=== PATIENT | male | born 1975 | race Caucasian/White ===

== ENCOUNTER 2016-11-14 06:56 | Day surgery (SDC) | payer BC ==
[~2016-11-14 06:56] MED LIST: Lactated Ringers 1,000 ML IV SCH
[2016-11-14] MEDS ORDERED: Propofol 200 MG/20 ML SDV ONE (08:04)
[2016-11-14] MEDS ORDERED: fentaNYL 100 MCG/2 ML SDV ONE (08:04)
[2016-11-14] MEDS ORDERED: Midazolam 1 MG/ML 2 ML SDV ONE (08:04)
[2016-11-14 09:21] VITALS: BP 149/98
--- NOTE | 2016-11-14 15:29 | OR ---
PREOPERATIVE DIAGNOSIS: Family history of colon cancer-mother. POSTOPERATIVE DIAGNOSIS: Polyp at 90 cm, removed. PROCEDURE PROPOSED: Total flexible colonoscopy. PROCEDURE DONE: Total flexible colonoscopy with cold snare polypectomy. INDICATION: This is a 41-year-old gentleman who has a family history of mother having had colon cancer at a young age, and he comes in for his first colonoscopic exam. He denies any symptomatology. TECHNIQUE: The patient was brought to the endoscopy suite, placed in left lateral decubitus position. He was sedated per [employer] with propofol. The flexible video colonoscope was then passed transanally and under visualization advanced to the cecum. Examination revealed a normal cecal and ascending colon, but right in the hepatic flexure, there was a polyp in 1 of the folds and I was able to get a cold snare on that and remove it and suctioned it out for examination. The remainder of the transverse, descending, sigmoid, and rectal colon was otherwise unremarkable. The endoscope was then withdrawn. The patient tolerated procedure well. IMPRESSION: 1. Polyp at 90 cm, hepatic flexure, removed. 2. Family history of colon cancer-mother. PLAN: The patient will be sent a letter with pathology report, but I feel he should continue with colonic surveillance every 5 years hereafter. SCM: 11/14/2016 08:53:13 MODL: 11/14/2016 12:11:22 /[id number]
--- NOTE | 2016-11-28 15:53 | LETTER ---
11/28/2016 RE: ZIGGY KRISHNA : 1975 Dear Mr. 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 I feel that you should continue to have colonoscopies every 5 years hereafter to make sure you are not forming any new polyps. Respectfully,
== END 2016-11-14 09:45 | disposition home or self-care (01) ==
LOC: VM.SDS 06:56
PROVIDERS: ATTEND Surgery
DX: Z12.11 Encounter for screening for malignant neoplasm of colon (principal); D12.6 Benign neoplasm of colon, unspecified; E78.5 Hyperlipidemia, unspecified; E66.9 Obesity, unspecified
CPT/HCPCS: 45385; J2250; J2704; J3010; J7120